=== PATIENT | male | born 1975 | race Caucasian/White ===

== ENCOUNTER 2022-04-11 12:02 | Emergency (ER) | payer OTHER ==
[2022-04-11] MEDS ORDERED: Bacitracin Oint 1 GM U/D Packet TOP ONE (13:04)
[2022-04-11] MEDS ORDERED: Lidocaine 1% with EPINEPHrine 1:100,000 50 ML MDV SUBCUT STA (13:04)
[2022-04-11 14:41] LABS: CORONAVIRUS COVID-19 NAA NEGATIVE (NEGATIVE)
[2022-04-11] MEDS ORDERED: Ketorolac 30 MG/ML SDV IM ONE (15:08)
[2022-04-11] MEDS ORDERED: Ibuprofen 800 MG Tab PO ONE (15:44)
== END 2022-04-11 15:53 | disposition home or self-care (01) ==
LOC: JP.ED 12:02
DX: S06.0X0A Concussion without loss of consciousness, initial encounter (principal); S01.01XA Laceration without foreign body of scalp, initial encounter; I10 Essential (primary) hypertension; Z79.899 Other long term (current) drug therapy; Z20.822 Contact with and (suspected) exposure to COVID-19; W18.30XA Fall on same level, unspecified, initial encounter; Y93.E1 Activity, personal bathing and showering; Y92.002 Bathroom of unspecified non-institutional (private) residence as the place of occurrence of the external cause
CPT/HCPCS: 0241U; 12002; 36415; 70450; 80048; 83605; 85025; 99284; A9270